=== PATIENT | male | born 1995 | race Two or more races ===

== ENCOUNTER 2016-12-31 20:25 | Emergency (ER) | payer OTHER ==
[~2016-12-31] VITALS: Ht 190.5 cm; Wt 72.7 kg
[~2016-12-31 20:25] MED LIST: ACETAMINOPHEN 325 MG TAB As Ordered ONE
[2016-12-31] MEDS ORDERED: ACETAMINOPH W/CODEINE #3 TAB UD PO ONE (21:15)
[2016-12-31] MEDS ORDERED: ACETAMINOPHEN 325 MG TAB PO ONE (21:15)
[2016-12-31] MEDS ORDERED: NAPR500T PO (21:48)
[2016-12-31] MEDS ORDERED: GUAIDM5UD PO (21:48)
[2016-12-31] MEDS ORDERED: KETOROLAC 30 MG/ML VIAL (J1885) IV ONE (22:00)
[2016-12-31] MEDS ORDERED: NS 1,000 ML IV ONE (22:00)
[2016-12-31 22:33] LABS: BASO % 0.4 % (0.0-1.0); EOS # 0.1 K/mm3 (0.0-0.50); EOS % 0.6 % (0.0-3.0); LARGE UNSTAINED CELL # 0.1 K/mm3 (0.0-0.4); LYMPH # 0.5 K/mm3 (1.5-6.5); LYMPH % 3.7 % (24.0-44.0); MEAN CORPUSCULAR HEMOGLOBIN 30.4 pg (27.0-33.0); MEAN CORPUSCULAR HGB CONC 34.6 g/dl (32.0-36.5); MONO # 0.6 K/mm3 (0.0-0.8); MONO % 6.3 % (0.0-5.0); NEUTROPHILS # 8.9 K/mm3 (1.8-7.7); PLATELET COUNT, AUTOMATED 114 k/mm3 (150-450); RED CELL DISTRIBUTION WIDTH 12.8 % (11.5-14.5); WHITE BLOOD COUNT 10.2 K/mm3 (4.0-10.0)
[2016-12-31 22:50] LABS: ERYTHROCYTE SEDIMENTATION RATE 1 mm/hr (0-15)
[2016-12-31 22:56] LABS: CONTROL LINE MONO INT CTR LINE PRESENT
[2016-12-31 23:02] LABS: ALBUMIN 4.1 GM/DL (3.2-5.2); ALBUMIN/GLOBULIN RATIO 1.46 (1.00-1.93); ALKALINE PHOSPHATASE 180 U/L (45-117); ALT/SGPT 16 U/L (12-78); ANION GAP 6 MEQ/L (8-16); AST/SGOT 18 U/L (15-37); BILIRUBIN,DIRECT 0.2 MG/DL (0.0-0.2); BILIRUBIN,TOTAL 0.8 MG/DL (0.2-1.0); BLOOD UREA NITROGEN 5 MG/DL (7-18); CALCIUM LEVEL 8.8 MG/DL (8.5-10.1); CARBON DIOXIDE LEVEL 29 MEQ/L (21-32); CHLORIDE LEVEL 102 MEQ/L (98-107); CREATININE FOR GFR 1.01 MG/DL (0.70-1.30); GLUCOSE, FASTING 105 MG/DL (70-105); POTASSIUM SERUM 3.6 MEQ/L (3.5-5.1); SODIUM LEVEL 137 MEQ/L (136-145); TOTAL PROTEIN 6.9 GM/DL (6.4-8.2)
[2016-12-31 23:20] VITALS: BP 103/47
--- NOTE | 2017-01-01 06:31 | REP ---
CHEST, TWO VIEWS: HISTORY: Cough. The lungs are clear. The heart is normal in size. The pulmonary vasculature is normal in appearance. The bony structure is intact. IMPRESSION: No acute disease. Signed by Tiago Corey MD 01/01/2017 08:16 A
== END 2016-12-31 23:47 | disposition home or self-care (01) ==
LOC: M ED 20:25
DX: M94.0 Chondrocostal junction syndrome [Tietze] (principal); B34.9 Viral infection, unspecified; Z87.891 Personal history of nicotine dependence
CPT/HCPCS: 71020; 80048; 80076; 83605; 85025; 85652; 86140; 86308; 87880; 96374; 99284; J1885

== ENCOUNTER 2017-10-17 18:10 | Emergency (ER) | payer OTHER | END 2017-10-17 21:29 | disposition home or self-care (01) | LOC: M ED 18:10 | DX: S00.90XA Unspecified superficial injury of unspecified part of head, initial encounter (principal); W19.XXXA Unspecified fall, initial encounter; Y92.84 Military training ground as the place of occurrence of the external cause; Y93.02 Activity, running; Y99.1 Military activity | CPT/HCPCS: 99283 ==

== ENCOUNTER 2018-03-30 15:22 | Emergency (ER) | payer OTHER ==
[2018-03-30] MEDS: NS 1,000 ML IV (17:14)
[2018-03-30] MEDS ORDERED: MORPHINE 2 MG/ML 1ML SYRINGE (J2270) IV (17:15)
[2018-03-30 17:46] LABS: BASO # 0.1 10^3/uL (0.0-0.2); BASO % 0.6 % (0.0-1.0); EOS # 0.1 10^3/uL (0.0-0.50); EOS % 1.5 % (0.0-3.0); HEMATOCRIT 44.4 % (42.0-52.0); HEMOGLOBIN 15.1 g/dl (13.5-17.5); IMMATURE GRANULOCYTE % 0.3 % (0-3.0); LYMPH # 1.7 10^3/uL (1.5-6.5); LYMPH % 19.9 % (24.0-44.0); MEAN CORPUSCULAR HEMOGLOBIN 30.9 pg (27.0-33.0); MONO # 1.2 10^3/uL (0.0-0.8); MONO % 13.9 % (0.0-5.0); NEUTROPHILS # 5.5 10^3/uL (1.8-7.7); NEUTROPHILS % 63.8 % (36.0-66.0); PLATELET COUNT, AUTOMATED 235 10^3/uL (150-450); RED BLOOD COUNT 4.88 10^6/uL (4.30-6.10); RED CELL DISTRIBUTION WIDTH 12.2 % (11.5-14.5); WHITE BLOOD COUNT 8.7 10^3/uL (4.0-10.0)
[2018-03-30 17:56] LABS: INR 1.01; PROTHROMBIN TIME 13.4 SECONDS (12.1-14.4)
[2018-03-30 18:47] LABS: ALBUMIN 4.1 GM/DL (3.2-5.2); ALBUMIN/GLOBULIN RATIO 1.08 (1.00-1.93); ALKALINE PHOSPHATASE 150 U/L (45-117); ALT/SGPT 28 U/L (12-78); ANION GAP 8 MEQ/L (8-16); AST/SGOT 31 U/L (7-37); BILIRUBIN,DIRECT 0.2 MG/DL (0.0-0.2); BILIRUBIN,TOTAL 0.6 MG/DL (0.2-1.0); BLOOD UREA NITROGEN 9 MG/DL (7-18); CALCIUM LEVEL 8.9 MG/DL (8.5-10.1); CARBON DIOXIDE LEVEL 31 MEQ/L (21-32); CHLORIDE LEVEL 103 MEQ/L (98-107); CREATININE FOR GFR 0.92 MG/DL (0.70-1.30); GLOMERULAR FILTRATION RATE > 60.0 (>60); GLUCOSE, FASTING 84 MG/DL (70-100); LIPASE 102 U/L (73-393); POTASSIUM SERUM 3.7 MEQ/L (3.5-5.1); SODIUM LEVEL 142 MEQ/L (136-145); TOTAL PROTEIN 7.9 GM/DL (6.4-8.2)
[2018-03-30] MEDS: ONDANSETRON 4MG/2ML VIAL (J2405) IV (19:19)
[2018-03-30 19:24] LABS: KETONE, URINE AUTO RFX NEGATIVE (NEGATIVE); MUCUS, URINE RFX SMALL (NEGATIVE); NITRITE, URINE AUTO RFX NEGATIVE (NEGATIVE); RBC, URINE AUTO RFX 7 /HPF (0-3); SQUAM EPITHELIAL CELL UR AURFX 0 /HPF (0-6); TRIPLE PHOSPHATE CRYSTALS RFX SMALL; YEAST LIKE CELL URINE AUTO RFX SMALL
[2018-03-30 19:28] LABS: LEUKOCYTE ESTERASE UR AUTO RFX 2+ (NEGATIVE); WBC, URINE AUTO RFX 53 /HPF (0-3)
[2018-03-30] MEDS: AZITHROMYCIN 250 MG TAB PO (20:00)
[2018-03-30] MEDS: CIPROFLOXACIN 500 MG TAB PO (20:00)
[2018-03-30] MEDS: cefTRIAXone SOD 250 MG VIAL (J0696) IM (20:00)
[2018-03-30 21:07] LABS: CHLAMYDIA DNA AMPLIFICATION NEGATIVE (NEGATIVE); GC DNA AMPLIFICATION POSITIVE (NEGATIVE)
== END 2018-03-30 20:05 | disposition home or self-care (01) ==
LOC: M ED 15:22
DX: N39.0 Urinary tract infection, site not specified (principal)
CPT/HCPCS: J0696

== ENCOUNTER 2018-08-26 15:44 | Emergency (ER) | payer OTHER ==
[~2018-08-26] VITALS: Ht 195.6 cm; Wt 72.8 kg
[~2018-08-26 15:44] MED LIST changes: -ACETAMINOPHEN 325 MG TAB As Ordered ONE; +CIPR-249 PO; +GUAIDM5UD PO; +NAPR-50 PO
[2018-08-26] MEDS ORDERED: NS 1,000 ML IV SCH (15:56)
[2018-08-26 16:14] LABS: BASO % 0.4 % (0.0-1.0); EOS # 0.1 10^3/uL (0.0-0.50); EOS % 1.4 % (0.0-3.0); HEMATOCRIT 42.5 % (42.0-52.0); HEMOGLOBIN 14.9 g/dl (13.5-17.5); LYMPH # 1.2 10^3/uL (1.5-6.5); MEAN CORPUSCULAR HEMOGLOBIN 30.7 pg (27.0-33.0); MEAN CORPUSCULAR HGB CONC 35.1 g/dl (32.0-36.5); MEAN CORPUSCULAR VOLUME 87.6 fl (80.0-96.0); MONO # 0.6 10^3/uL (0.0-0.8); NEUTROPHILS # 3.7 10^3/uL (1.8-7.7); PLATELET COUNT, AUTOMATED 183 10^3/uL (150-450); RED BLOOD COUNT 4.85 10^6/uL (4.30-6.10); WHITE BLOOD COUNT 5.6 10^3/uL (4.0-10.0)
--- NOTE | 2018-08-26 16:32 | REP ---
CT of the brain without IV contrast: There are no comparisons. There is no hemorrhage. There is no edema, mass effect or midline shift. The ventricles are normal size and midline. The cortical stripe is unremarkable. The visualized paranasal sinuses and mastoid air cells are clear. Impression: There is no hemorrhage, acute infarct or mass. Negative CT study of the brain. Electronically Signed by Yemi Fernandez MD 08/26/2018 04:23 P
[2018-08-26 16:46] LABS: ACETAMINOPHEN LEVEL < 2.0 UG/ML (10.0-30.0); ALBUMIN 4.2 GM/DL (3.2-5.2); ALT/SGPT 30 U/L (12-78); BILIRUBIN,DIRECT 0.3 MG/DL (0.0-0.2); BILIRUBIN,TOTAL 1.1 MG/DL (0.2-1.0); BLOOD UREA NITROGEN 8 MG/DL (7-18); CALCIUM LEVEL 8.4 MG/DL (8.5-10.1); CARBON DIOXIDE LEVEL 30 MEQ/L (21-32); CHLORIDE LEVEL 106 MEQ/L (98-107); CPK CREATINE PHOSPHOKINASE 301 U/L (39-308); CREATININE FOR GFR 0.97 MG/DL (0.70-1.30); ETHYL ALCOHOL (ETHANOL) < 0.003 % (0.000-0.010); GLOMERULAR FILTRATION RATE > 60.0 (>60); GLUCOSE, FASTING 99 MG/DL (70-100); SALICYLATE LEVEL < 1.7 MG/DL (5.0-30.0); SODIUM LEVEL 141 MEQ/L (136-145); TOTAL PROTEIN 7.3 GM/DL (6.4-8.2); TROPONIN I 0.06 NG/ML (< 0.10)
--- NOTE | 2018-08-26 17:06 | REP ---
Portable chest, single AP sitting view, 04:11 p.m.: Comparison is 12/31/2016. The lung dow are clear. The cardiac size is normal. The fredy, mediastinum, and skeletal structures are unremarkable. Impression: Negative portable chest. No interval change. Electronically Signed by Yemi Fernandez MD 08/26/2018 04:58 P
[2018-08-26 18:20] LABS: AMPHETAMINES LEVEL URINE NEGATIVE (NEGATIVE); BARBITURATES URINE NEGATIVE (NEGATIVE); BENZODIAZEPINES URINE NEGATIVE (NEGATIVE); CANNABINOIDS URINE NEGATIVE (NEGATIVE); COCAINE METABOLITE URINE NEGATIVE (NEGATIVE); METHADONE URINE NEGATIVE (NEGATIVE); OPIATES URINE NEGATIVE (NEGATIVE); PHENCYCLIDINE URINE NEGATIVE (NEGATIVE)
[2018-08-26 18:45] VITALS: BP 123/70
--- NOTE | 2018-08-27 20:55 | ECGEPIP ---
Stationary ECG Study [facility] - ED Test Date: 2018-08-26 Pat Name: DAWNA MCNALLY Department: Room: - Gender: M [employer]: susy : 1995 Requested By: MIRTHA BAIRD Order Number: [id number] Reading MD: Sammie Manning Measurements Intervals Dale Rate: 62 P: 73 VT: 141 QRS: 79 QRSD: 97 T: 56 QT: 453 QTc: 460 Interpretive Statements SINUS RHYTHM PROBABLE EARLY REPOLARIZATION, CLINICAL CORRELATION Electronically Signed On 08-27-2018 20:55:13 EDT by Sammie Manning
== END 2018-08-26 19:03 | disposition home or self-care (01) ==
LOC: EDBD 15:44 → M ED 15:44
DX: R55 Syncope and collapse (principal); R94.31 Abnormal electrocardiogram [ECG] [EKG]
CPT/HCPCS: 70450; 71045; 80048; 80076; 80307; 81001; 82550; 82553; 83605; 84443; 84484; 85025; 93005; 93041; 94760; 96360; 96361; 99285; G0480

== ENCOUNTER 2018-11-21 07:42 | Emergency (ER) | payer OTHER ==
[~2018-11-21] VITALS: Ht 195.6 cm; Wt 76.3 kg
[2018-11-21 07:42] VITALS: BP 122/64
[~2018-11-21 07:42] MED LIST changes: -NAPR-50 PO; +NAPR-837 PO
[2018-11-21] MEDS ORDERED: CYCL10TA PO (08:06)
[2018-11-21] MEDS ORDERED: IBUPROFEN 600 MG TAB PO ONE (08:15)
== END 2018-11-21 08:26 | disposition home or self-care (01) ==
LOC: M ED 07:42
DX: S29.012A Strain of muscle and tendon of back wall of thorax, initial encounter (principal); X50.0XXA Overexertion from strenuous movement or load, initial encounter; Y92.89 Other specified places as the place of occurrence of the external cause; Y99.1 Military activity